=== PATIENT | female | born 1955 | race African-American/Black ===

== ENCOUNTER 2023-06-23 10:58 | Day surgery (SDC) | payer OTHER ==
[~2023-06-23] VITALS: Ht 167.6 cm; Wt 65.3 kg
[2023-06-23] MEDS ORDERED: fentaNYL CITRATE/PF 100 MCG/2 ML AMP ONE ×2 (11:52→13:03)
[2023-06-23] MEDS ORDERED: MEPERIDINE 100 MG INJ. 100 MG/ML VIAL ONE (11:52)
[2023-06-23] MEDS ORDERED: MIDAZOLAM HCL 5 MG/5 ML VIAL ONE ×2 (11:52→13:03)
[2023-06-23 12:23] VITALS: O2SAT 100
[2023-06-23 16:58] VITALS: BP_SYST 148; PULSE 73; RESP 18
== END 2023-06-23 14:29 | disposition home or self-care (01) ==
LOC: SDS 10:58 → SMU 11:01 → SDS 14:29
PROVIDERS: ATTEND Surgery
DX: Z12.11 Encounter for screening for malignant neoplasm of colon (principal); K64.8 Other hemorrhoids; Z98.818 Other dental procedure status; Z98.890 Other specified postprocedural states
CPT/HCPCS: 45378; G0378; J2250; J3010; J2175